=== PATIENT | female | born 1955 | race Caucasian/White ===

== ENCOUNTER 2020-12-19 19:06 | Emergency (ER) | payer OTHER ==
[~2020-12-19] VITALS: Ht 152.4 cm; Wt 86.2 kg
[2020-12-19 19:27] VITALS: BP_SYST 152
[2020-12-19] MEDS ORDERED: KETOROLAC TROMETHAMINE 60 MG/2 ML VIAL IM ONE (19:45)
[2020-12-19] MEDS ORDERED: LOSA25TA3 PO (20:03)
[2020-12-19] MEDS ORDERED: IBUP-1971 PO (22:02)
[2020-12-19 23:08] VITALS: BP_SYST 152
== END 2020-12-19 23:08 | disposition home or self-care (01) ==
LOC: SED 19:06
DX: R51.9 Headache, unspecified (principal); Z91.040 Latex allergy status; Z79.899 Other long term (current) drug therapy
CPT/HCPCS: 70450; 76376; 81002; 96372; 99284; J1885